=== PATIENT | male | born 1950 | race Caucasian/White ===

== ENCOUNTER 2018-07-10 10:16 | Inpatient (IN) | payer MEDICARE ==
[~2018-07-10] VITALS: Ht 172.7 cm; Wt 89.1 kg
[~2018-07-10 10:16] MED LIST: ALBU18HF INH; ASPI-515 PO; DILT120C11 PO; ENAL10TA PO; FOLI0.8T2 PO; GLUC1CAP48 PO; HYDR25TA6 PO
[2018-07-10] MEDS ORDERED: ALBUTEROL SULFATE 2.5 MG/3 ML ONE ×2 (10:22)
--- NOTE | 2018-07-10 10:29 | NUR ---
67 Y/O MALE BIB AMBULANCE WITH C/O SOB. PER REPORT PT WAS SOB X 24 HOURS. PT CAME FROM HOME. ROOM AIR SATURATION ON FIRE ARRIVAL WAS 74%, AFTER PT OWN NEB TX. PT WAS GIVEN TOTAL OF 2 DUONEB AND TWO ALBUTEROL TX [employer]ATE [employer]STER. PT WAS 95% ON CPAP. PIV, 22 RIGHT WRIST, STARTED BY EMS. 20 RIGHT HAND STARTED BY THIS RN. PT TOLERATED WITH NO COMPLICATIONS. 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 PT WAS ALSO GIVEN 0.4 SL NITRO D/T HTN [employer]ATE WEBMASTER. NO C/O F/C, CP, N/V/D. PT PLACED ON HI-VNI HIGH FLOW. PT TOLERATING WITH NO COMPLICATIONS.
[2018-07-10] MEDS ORDERED: SODIUM CHLORIDE FLUSH 10ML SYR IVF ONE (10:30)
[2018-07-10] MEDS ORDERED: ALBUTEROL SULFATE 2.5 MG/3 ML NPPB SCH ×2 (10:30→13:00)
--- NOTE | 2018-07-10 10:36 | NUR ---
PT STATES "I FEEL A LITTLE BETTER."
[2018-07-10 10:42] LABS: BASOPHILS # (AUTO) 0.07 x10^3/uL (0-0.1); BASOPHILS % (AUTO) 1 % (0-1); EOSINOPHILS # (AUTO) 0.04 x10^3/uL (0-0.4); EOSINOPHILS % (AUTO) 0 % (1-7); LYMPHOCYTES # (AUTO) 0.76 x10^3/uL (1-3.4); LYMPHOCYTES % (AUTO) 6 % (22-44); MD NO; MEAN CORPUSCULAR HGB CONC 33.5 g/dL (33.2-36.2); MEAN CORPUSCULAR VOLUME 92.4 fL (81-97); MEAN PLATELET VOLUME 7.8 fL (7.4-10.4); MONOCYTES # (AUTO) 0.57 x10^3/uL (0.2-0.8); MONOCYTES % (AUTO) 5 % (2-9); NEUTROPHILS % (AUTO) 88 % (42-75); PLATELET COUNT 214 x10^3/uL (130-400); RED BLOOD COUNT 5.35 x10^6/uL (4.38-5.82); RED CELL DISTRIBUTION WIDTH 13.7 % (9.4-14.8)
[2018-07-10] MEDS ORDERED: BREO ELLIPTA (10:46)
--- NOTE | 2018-07-10 10:46 | NUR ---
PT STATES "I TAKE TRILOGY, BUT I RAN OUT OF IT. SO I'VE BEEN USING THE SPIRIVA."
[2018-07-10] MEDS ORDERED: TRELEGY ELLIPTA (10:49)
[2018-07-10 10:51] LABS: ALANINE AMINOTRANSFERASE 28 U/L (12-78); ALBUMIN 3.5 g/dL (3.4-5.0); ANION GAP 8 mmol/L (5-15); CALCIUM 8.8 mg/dL (8.5-10.1); CHLORIDE 86 mmol/L (98-107); CREATININE 0.87 mg/dL (0.7-1.3)
[2018-07-10 10:56] LABS: ALKALINE PHOSPHATASE 159 U/L (45-117); BILIRUBIN,TOTAL 0.9 mg/dL (0.2-1.0); TOTAL PROTEIN 8.2 g/dL (6.4-8.2); TROPONIN I < 0.015 ng/mL (0.000-0.045)
--- NOTE | 2018-07-10 11:03 | NUR ---
PT A&OX4 AT THIS TIME.
--- NOTE | 2018-07-10 11:11 | NUR ---
PT GIVEN BLANKET. FAMILY BEDSIDE. NO ACUTE DISTRESS NOTED. PT ABLE TO SPEAK WITH FAMILY.
[2018-07-10] MEDS ORDERED: SODIUM CHLORIDE 0.9%, 500ML IVBOLUS ONE (11:30)
[2018-07-10] MEDS ORDERED: DEXTROSE 50%, 50ML SYRINGE IVPush ONE (11:30)
[2018-07-10] MEDS ORDERED: INSULIN REGULAR 100 UNITS/ML, 3ML VIAL IVPush ONE (11:30)
[2018-07-10] MEDS ORDERED: CEFTRIAXONE PMX 1GM/50ML 50 ML ONE (11:30)
[2018-07-10] MEDS ORDERED: CALCIUM CHLORIDE 10%, 10ML SYR IVPush ONE (11:30)
[2018-07-10] MEDS ORDERED: CEFTRIAXONE PMX 1GM/50ML 50 ML IVPB ONE (11:30)
[2018-07-10] MEDS ORDERED: CALCIUM CHLORIDE 10%, 10ML SYR ONE (11:31)
[2018-07-10] MEDS ORDERED: DEXTROSE 50%, 50ML SYRINGE ONE (11:31)
[2018-07-10] MEDS ORDERED: INSULIN SINGLE DOSE, ER SQ-INSULIN ONE (11:33)
[2018-07-10] MEDS ORDERED: MULT-297 PO (11:37)
--- NOTE | 2018-07-10 11:55 | NUR ---
ABX ADMINISTERED PER EMAR. BCX2 COMPLETED.
--- NOTE | 2018-07-10 11:56 | NUR ---
PT RESTING ON GURNEY. NO ACUTE DISTRESS NOTED. PT A&OX4. FAMILY BEDSIDE. NO NEEDS REQUESTED AT THIS TIME.
--- NOTE | 2018-07-10 12:04 | NUR ---
REPORT TO LEONORA RODRIGUEZ. ALL QUESTIONS ANSWERED.
[2018-07-10] MEDS ORDERED: ALBUTEROL/IPRATROPIUM 2.5MG/0.5MG, 3 ML ONE (12:33)
[2018-07-10] MEDS ORDERED: LORazepam 2 MG/ML, 1ML IV PRN ×4 (13:00)
[2018-07-10] MEDS ORDERED: LORazepam 1MG TABLET PO PRN ×2 (13:00)
[2018-07-10] MEDS ORDERED: ACETAMINOPHEN 325 MG TABLET PO PRN (13:00)
[2018-07-10] MEDS ORDERED: CEFTRIAXONE PMX 2GM/50ML 50 ML IV SCH (13:00)
[2018-07-10] MEDS ORDERED: LORazepam 0.5MG TABLET PO PRN (13:00)
[2018-07-10] MEDS ORDERED: SODIUM CHLORIDE 0.9% 1,000 ML IV SCH (13:00)
[2018-07-10] MEDS: ENOXAPARIN 40 MG/0.4 ML SQ SCH (15:00)
[2018-07-10] MEDS: ALBUTEROL/IPRATROPIUM 2.5MG/0.5MG, 3 ML NPPB SCH ×3 (16:55→22:47)
[2018-07-10] MEDS: CARVEDILOL 6.25 MG TABLET PO SCH (17:14)
[2018-07-10] MEDS ORDERED: CODE BLUE RESPONSE XX ONE (18:22)
[2018-07-10] MEDS ORDERED: MIDAZOLAM 1 MG/ML, 5ML ONE (18:30)
[2018-07-10] MEDS ORDERED: PROPOFOL 100 ML IV ONE (18:51)
[2018-07-10] MEDS ORDERED: PROPOFOL 100 ML IV PRN (19:40)
[2018-07-10] MEDS ORDERED: MIDAZOLAM HCL 25 MG in SODIUM CHLORIDE 0.9% 245 ML IV PRN (19:40)
[2018-07-10] MEDS ORDERED: LIDOCAINE-MPF 1%, 2ML ENDO PRN (20:00)
[2018-07-10] MEDS ORDERED: PHARMACY MAY ADJ FOR RENAL FX MC SCH (20:00)
[2018-07-10] MEDS ORDERED: SODIUM CHLORIDE 0.9% 1,000ML IVBOLUS ONE (21:00)
[2018-07-10] MEDS ORDERED: NOREPINEPHRINE 4 MG in SODIUM CHLORIDE 0.9% 246 ML IV PRN (21:00)
[2018-07-10] MEDS: DOXYCYCLINE 100 MG in DEXTROSE 5% 250 ML IV SCH (21:02)
[2018-07-10] MEDS: SODIUM CHLORIDE 0.9% 1,000 ML IV SCH (21:02)
[2018-07-10] MEDS: FAMOTIDINE 20 MG/2 ML IV SCH (21:04)
[2018-07-10 21:06] LABS: TROPONIN I 0.195 ng/mL (0.000-0.045)
[2018-07-10] MEDS: MIDAZOLAM HCL 50 MG in SODIUM CHLORIDE 0.9% 240 ML IV PRN (23:52)
[2018-07-11] MEDS: ALBUTEROL/IPRATROPIUM 2.5MG/0.5MG, 3 ML NPPB SCH ×6 (02:32→21:50)
[2018-07-11] MEDS: CARVEDILOL 6.25 MG TABLET PO SCH ×2 (05:01→18:03)
[2018-07-11 05:21] LABS: ALANINE AMINOTRANSFERASE 22 U/L (12-78); ALBUMIN 2.7 g/dL (3.4-5.0); ANION GAP 6 mmol/L (5-15); CALCIUM 7.9 mg/dL (8.5-10.1); CHLORIDE 99 mmol/L (98-107); CREATININE 0.98 mg/dL (0.7-1.3)
[2018-07-11 05:23] LABS: ALKALINE PHOSPHATASE 90 U/L (45-117); BILIRUBIN,TOTAL 0.4 mg/dL (0.2-1.0); TOTAL PROTEIN 5.9 g/dL (6.4-8.2)
[2018-07-11 05:24] LABS: TROPONIN I 0.366 ng/mL (0.000-0.045)
[2018-07-11 05:27] LABS: BASOPHILS # (AUTO) 0.01 x10^3/uL (0-0.1); BASOPHILS % (AUTO) 0 % (0-1); EOSINOPHILS % (AUTO) 0 % (1-7); LYMPHOCYTES # (AUTO) 0.59 x10^3/uL (1-3.4); LYMPHOCYTES % (AUTO) 7 % (22-44); MD NO; MEAN CORPUSCULAR HEMOGLOBIN 31.4 pg (27.5-34.5); MEAN CORPUSCULAR HGB CONC 33.9 g/dL (33.2-36.2); MEAN CORPUSCULAR VOLUME 92.5 fL (81-97); MEAN PLATELET VOLUME 7.9 fL (7.4-10.4); MONOCYTES # (AUTO) 0.43 x10^3/uL (0.2-0.8); MONOCYTES % (AUTO) 5 % (2-9); NEUTROPHILS # (AUTO) 7.28 x10^3/uL (1.8-6.8); NEUTROPHILS % (AUTO) 88 % (42-75); PLATELET COUNT 171 x10^3/uL (130-400); RED BLOOD COUNT 4.36 x10^6/uL (4.38-5.82); RED CELL DISTRIBUTION WIDTH 13.9 % (9.4-14.8)
[2018-07-11] MEDS: SODIUM CHLORIDE 0.9% 1,000 ML IV SCH ×2 (07:52→20:03)
[2018-07-11] MEDS: FOLIC ACID 1 MG TABLET PO SCH (07:53)
[2018-07-11] MEDS: DOXYCYCLINE 100 MG in DEXTROSE 5% 250 ML IV SCH ×2 (07:53→20:03)
[2018-07-11] MEDS: FAMOTIDINE 20 MG/2 ML IV SCH ×2 (07:53→20:03)
[2018-07-11] MEDS ORDERED: THIAMINE 100MG TABLET PO SCH (09:00)
[2018-07-11] MEDS ORDERED: TEMPLATE NON-FORMULARY MED. (Gluc 2KCL/Chondr/Coll Hy/Hy Ac** (Glucosamine & Chondroitin C PO SCH (09:00)
[2018-07-11] MEDS ORDERED: ENALAPRIL 10 MG TABLET PO SCH (09:00)
[2018-07-11] MEDS ORDERED: THIAMINE 100 MG in SODIUM CHLORIDE 0.9% 50 ML IV SCH (09:30)
[2018-07-11] MEDS: NICOTINE 21 MG/24 HR PATCH.TD24 TD SCH (10:27)
[2018-07-11] MEDS: MULTIVITAMINS/MINERALS TABLET PO SCH (10:27)
[2018-07-11 11:32] LABS: TROPONIN I 0.893 ng/mL (0.000-0.045)
[2018-07-11] MEDS: ENOXAPARIN 40 MG/0.4 ML SQ SCH (12:17)
--- NOTE | 2018-07-11 13:20 | NUR ---
TF GOAL: w/ propofol: PROMOTE @ 70ML/HR off propofol: PROMOTE @ 80ML/HR
[2018-07-11] MEDS: CEFTRIAXONE PMX 1GM/50ML 50 ML IV SCH (13:44)
[2018-07-11] MEDS: methylPREDNISolone SOD SUCC 125 MG/2 ML IVPush SCH ×2 (15:56→21:42)
[2018-07-11] MEDS: MIDAZOLAM HCL 50 MG in SODIUM CHLORIDE 0.9% 240 ML IV PRN (21:42)
[2018-07-11] MEDS: BUDESONIDE 0.5 MG/2 ML INHA INH SCH (21:50)
[2018-07-12] MEDS: ALBUTEROL/IPRATROPIUM 2.5MG/0.5MG, 3 ML NPPB SCH ×6 (02:20→22:00)
[2018-07-12] MEDS: MIDAZOLAM HCL 50 MG in SODIUM CHLORIDE 0.9% 240 ML IV PRN ×4 (03:00→23:48)
[2018-07-12] MEDS: methylPREDNISolone SOD SUCC 125 MG/2 ML IVPush SCH ×4 (03:00→20:36)
[2018-07-12 04:12] LABS: BASOPHILS % (AUTO) 0 % (0-1); EOSINOPHILS # (AUTO) 0.01 x10^3/uL (0-0.4); EOSINOPHILS % (AUTO) 0 % (1-7); LYMPHOCYTES # (AUTO) 0.41 x10^3/uL (1-3.4); LYMPHOCYTES % (AUTO) 6 % (22-44); MD NO; MEAN CORPUSCULAR HGB CONC 34.1 g/dL (33.2-36.2); MEAN CORPUSCULAR VOLUME 93.9 fL (81-97); MONOCYTES % (AUTO) 1 % (2-9); NEUTROPHILS # (AUTO) 6.32 x10^3/uL (1.8-6.8); NEUTROPHILS % (AUTO) 92 % (42-75); PLATELET COUNT 141 x10^3/uL (130-400); RED BLOOD COUNT 4.16 x10^6/uL (4.38-5.82); RED CELL DISTRIBUTION WIDTH 13.8 % (9.4-14.8)
[2018-07-12 04:14] LABS: ANION GAP 5 mmol/L (5-15); CALCIUM 7.6 mg/dL (8.5-10.1); CHLORIDE 102 mmol/L (98-107); CREATININE 0.84 mg/dL (0.7-1.3)
[2018-07-12] MEDS: CARVEDILOL 6.25 MG TABLET PO SCH (05:14)
[2018-07-12] MEDS: DOXYCYCLINE 100 MG in DEXTROSE 5% 250 ML IV SCH (07:37)
[2018-07-12] MEDS: BUDESONIDE 0.5 MG/2 ML INHA INH SCH ×2 (07:53→21:00)
[2018-07-12] MEDS: FAMOTIDINE 20 MG/2 ML IV SCH ×2 (10:15→20:36)
[2018-07-12] MEDS: NICOTINE 21 MG/24 HR PATCH.TD24 TD SCH (10:15)
[2018-07-12] MEDS: MULTIVITAMINS/MINERALS TABLET PO SCH (10:15)
[2018-07-12] MEDS: FOLIC ACID 1 MG TABLET PO SCH (10:16)
[2018-07-12] MEDS: ENALAPRIL 10 MG TABLET PO SCH (10:16)
[2018-07-12] MEDS: THIAMINE 100MG TABLET NG SCH (11:00)
[2018-07-12] MEDS ORDERED: methylPREDNISolone SOD SUCC 40 MG/ML IV STA (11:53)
[2018-07-12] MEDS: CEFTRIAXONE PMX 1GM/50ML 50 ML IV SCH (14:22)
[2018-07-12] MEDS: ENOXAPARIN 40 MG/0.4 ML SQ SCH (14:27)
[2018-07-12] MEDS ORDERED: MAGNESIUM SULFATE PMX 2GM/50ML 50 ML IV ONE (17:39)
[2018-07-12] MEDS: CARVEDILOL 6.25 MG TABLET NG SCH (18:41)
[2018-07-12] MEDS: ALBUTEROL SULFATE 2.5 MG/3 ML NPPB PRN (21:34)
[2018-07-13] MEDS: ALBUTEROL SULFATE 2.5 MG/3 ML NPPB PRN (01:32)
[2018-07-13] MEDS: ALBUTEROL/IPRATROPIUM 2.5MG/0.5MG, 3 ML NPPB SCH ×6 (02:00→21:55)
[2018-07-13] MEDS: methylPREDNISolone SOD SUCC 125 MG/2 ML IVPush SCH ×4 (03:00→21:18)
[2018-07-13 04:34] LABS: ANION GAP 5 mmol/L (5-15); CALCIUM 7.9 mg/dL (8.5-10.1); CHLORIDE 101 mmol/L (98-107); CREATININE 0.74 mg/dL (0.7-1.3); TRIGLYCERIDES 110 mg/dL (50-200)
[2018-07-13 04:35] LABS: BASOPHILS # (AUTO) 0.01 x10^3/uL (0-0.1); BASOPHILS % (AUTO) 0 % (0-1); EOSINOPHILS % (AUTO) 0 % (1-7); LYMPHOCYTES # (AUTO) 0.37 x10^3/uL (1-3.4); LYMPHOCYTES % (AUTO) 7 % (22-44); MD NO; MEAN CORPUSCULAR HEMOGLOBIN 31.5 pg (27.5-34.5); MEAN CORPUSCULAR HGB CONC 33.8 g/dL (33.2-36.2); MEAN CORPUSCULAR VOLUME 93.2 fL (81-97); MEAN PLATELET VOLUME 7.9 fL (7.4-10.4); MONOCYTES # (AUTO) 0.26 x10^3/uL (0.2-0.8); MONOCYTES % (AUTO) 5 % (2-9); NEUTROPHILS # (AUTO) 4.85 x10^3/uL (1.8-6.8); NEUTROPHILS % (AUTO) 88 % (42-75); PLATELET COUNT 143 x10^3/uL (130-400); RED BLOOD COUNT 4.36 x10^6/uL (4.38-5.82); RED CELL DISTRIBUTION WIDTH 14.4 % (9.4-14.8)
[2018-07-13] MEDS: CARVEDILOL 6.25 MG TABLET NG SCH (04:59)
[2018-07-13] MEDS: MIDAZOLAM HCL 50 MG in SODIUM CHLORIDE 0.9% 240 ML IV PRN ×3 (04:59→21:19)
[2018-07-13] MEDS ORDERED: hydrALAzine 20 MG/ML, 1ML ONE (06:22)
[2018-07-13] MEDS: hydrALAzine 20 MG/ML, 1ML IV PRN ×2 (06:24→22:52)
[2018-07-13] MEDS: BUDESONIDE 0.5 MG/2 ML INHA INH SCH ×2 (07:15→21:55)
[2018-07-13] MEDS ORDERED: ENALAPRIL 20MG TABLET ONE (07:45)
[2018-07-13] MEDS: FAMOTIDINE 20 MG/2 ML IV SCH ×2 (08:08→21:18)
[2018-07-13] MEDS: ENALAPRIL 10 MG TABLET PO SCH (08:09)
[2018-07-13] MEDS: MULTIVITAMINS/MINERALS TABLET PO SCH (08:09)
[2018-07-13] MEDS: NICOTINE 21 MG/24 HR PATCH.TD24 TD SCH (08:10)
[2018-07-13] MEDS: FOLIC ACID 1 MG TABLET NG SCH (08:10)
[2018-07-13] MEDS: FUROSEMIDE 20 MG/2 ML IV SCH ×2 (08:56→21:18)
[2018-07-13] MEDS: POTASSIUM CHLORIDE 10% 20 MEQ/15 ML UDC PO SCH ×2 (08:56→21:18)
[2018-07-13] MEDS: THIAMINE 100MG TABLET NG SCH (11:16)
[2018-07-13] MEDS: ENOXAPARIN 40 MG/0.4 ML SQ SCH (12:33)
[2018-07-13] MEDS: CEFTRIAXONE PMX 1GM/50ML 50 ML IV SCH (12:34)
[2018-07-14] MEDS: ALBUTEROL/IPRATROPIUM 2.5MG/0.5MG, 3 ML NPPB SCH ×6 (02:30→22:15)
[2018-07-14] MEDS: methylPREDNISolone SOD SUCC 125 MG/2 ML IVPush SCH ×4 (03:24→21:16)
[2018-07-14] MEDS: hydrALAzine 20 MG/ML, 1ML IV PRN (03:25)
[2018-07-14 04:45] LABS: BASOPHILS # (AUTO) 0.01 x10^3/uL (0-0.1); BASOPHILS % (AUTO) 0 % (0-1); EOSINOPHILS % (AUTO) 0 % (1-7); LYMPHOCYTES # (AUTO) 0.33 x10^3/uL (1-3.4); LYMPHOCYTES % (AUTO) 5 % (22-44); MD NO; MEAN CORPUSCULAR HEMOGLOBIN 31.1 pg (27.5-34.5); MEAN CORPUSCULAR HGB CONC 33.3 g/dL (33.2-36.2); MEAN CORPUSCULAR VOLUME 93.4 fL (81-97); MONOCYTES # (AUTO) 0.41 x10^3/uL (0.2-0.8); MONOCYTES % (AUTO) 6 % (2-9); NEUTROPHILS # (AUTO) 6.08 x10^3/uL (1.8-6.8); NEUTROPHILS % (AUTO) 89 % (42-75); PLATELET COUNT 165 x10^3/uL (130-400); RED CELL DISTRIBUTION WIDTH 14.1 % (9.4-14.8)
[2018-07-14] MEDS: BUDESONIDE 0.5 MG/2 ML INHA INH SCH ×2 (06:35→18:50)
[2018-07-14] MEDS: POTASSIUM CHLORIDE 10% 20 MEQ/15 ML UDC PO SCH ×2 (07:52→21:12)
[2018-07-14] MEDS: NICOTINE 21 MG/24 HR PATCH.TD24 TD SCH (07:53)
[2018-07-14] MEDS: FUROSEMIDE 20 MG/2 ML IV SCH ×2 (07:53→21:13)
[2018-07-14] MEDS: ENALAPRIL 10 MG TABLET PO SCH (07:53)
[2018-07-14] MEDS: MULTIVITAMINS/MINERALS TABLET PO SCH (07:53)
[2018-07-14] MEDS: FAMOTIDINE 20 MG TABLET PO SCH ×2 (07:53→21:11)
[2018-07-14] MEDS: FOLIC ACID 1 MG TABLET NG SCH (07:54)
[2018-07-14] MEDS: DEXMEDETOMIDINE 1,000 MCG in SODIUM CHLORIDE 0.9% 240 ML IV PRN (09:11)
[2018-07-14] MEDS: THIAMINE 100MG TABLET NG SCH (10:30)
[2018-07-14 10:44] LABS: ALANINE AMINOTRANSFERASE 30 U/L (12-78); ALBUMIN 2.9 g/dL (3.4-5.0); ANION GAP 6 mmol/L (5-15); CALCIUM 8.3 mg/dL (8.5-10.1); CHLORIDE 102 mmol/L (98-107); CREATININE 0.95 mg/dL (0.7-1.3)
[2018-07-14 10:47] LABS: ALKALINE PHOSPHATASE 106 U/L (45-117); BILIRUBIN,TOTAL 0.6 mg/dL (0.2-1.0); TOTAL PROTEIN 6.2 g/dL (6.4-8.2)
[2018-07-14] MEDS: CEFTRIAXONE PMX 1GM/50ML 50 ML IV SCH (13:07)
[2018-07-14] MEDS: ENOXAPARIN 40 MG/0.4 ML SQ SCH (13:07)
[2018-07-15] MEDS: hydrALAzine 20 MG/ML, 1ML IV PRN ×3 (01:07→19:59)
[2018-07-15] MEDS: DEXMEDETOMIDINE 1,000 MCG in SODIUM CHLORIDE 0.9% 240 ML IV PRN (01:30)
[2018-07-15] MEDS: ALBUTEROL/IPRATROPIUM 2.5MG/0.5MG, 3 ML NPPB SCH ×6 (02:45→20:20)
[2018-07-15] MEDS: methylPREDNISolone SOD SUCC 125 MG/2 ML IVPush SCH ×4 (03:33→19:29)
[2018-07-15 04:45] LABS: BASOPHILS # (AUTO) 0.01 x10^3/uL (0-0.1); BASOPHILS % (AUTO) 0 % (0-1); EOSINOPHILS % (AUTO) 0 % (1-7); LYMPHOCYTES % (AUTO) 8 % (22-44); MD NO; MEAN CORPUSCULAR HEMOGLOBIN 30.7 pg (27.5-34.5); MEAN CORPUSCULAR HGB CONC 33.1 g/dL (33.2-36.2); MEAN CORPUSCULAR VOLUME 92.7 fL (81-97); MONOCYTES # (AUTO) 0.28 x10^3/uL (0.2-0.8); MONOCYTES % (AUTO) 8 % (2-9); NEUTROPHILS # (AUTO) 3.02 x10^3/uL (1.8-6.8); NEUTROPHILS % (AUTO) 84 % (42-75); PLATELET COUNT 131 x10^3/uL (130-400); RED BLOOD COUNT 4.73 x10^6/uL (4.38-5.82); RED CELL DISTRIBUTION WIDTH 14.2 % (9.4-14.8)
[2018-07-15] MEDS ORDERED: LACTULOSE 20 GM/30 ML UDC NG PRN (07:00)
[2018-07-15] MEDS ORDERED: BISACODYL 10 MG SUPP PR PRN (07:00)
[2018-07-15 07:23] LABS: ANION GAP 7 mmol/L (5-15); CHLORIDE 102 mmol/L (98-107); CREATININE 0.92 mg/dL (0.7-1.3)
[2018-07-15] MEDS: BUDESONIDE 0.5 MG/2 ML INHA INH SCH ×2 (07:26→20:20)
[2018-07-15] MEDS: MULTIVITAMINS/MINERALS TABLET PO SCH (07:44)
[2018-07-15] MEDS: POTASSIUM CHLORIDE 10% 20 MEQ/15 ML UDC PO SCH ×2 (07:44→19:29)
[2018-07-15] MEDS: DOCUSATE 50 MG/5 ML, 10ML UDC PO SCH (07:44)
[2018-07-15] MEDS: ENALAPRIL 10 MG TABLET PO SCH (07:45)
[2018-07-15] MEDS: FAMOTIDINE 20 MG TABLET PO SCH ×2 (07:45→19:29)
[2018-07-15] MEDS: FUROSEMIDE 20 MG/2 ML IV SCH ×2 (07:45→19:29)
[2018-07-15] MEDS: FOLIC ACID 1 MG TABLET NG SCH (07:45)
[2018-07-15] MEDS: NICOTINE 21 MG/24 HR PATCH.TD24 TD SCH (07:46)
[2018-07-15] MEDS: THIAMINE 100MG TABLET NG SCH (11:27)
[2018-07-15] MEDS ORDERED: ALBUTEROL/IPRATROPIUM 2.5MG/0.5MG, 3 ML NPPB PRN (12:00)
[2018-07-15] MEDS: ENOXAPARIN 40 MG/0.4 ML SQ SCH (12:06)
[2018-07-15] MEDS: CEFTRIAXONE PMX 1GM/50ML 50 ML IV SCH (12:06)
[2018-07-15] MEDS: SENNOSIDES 8.8 MG/5 ML ORAL SOL NG SCH (19:29)
[2018-07-16] MEDS: methylPREDNISolone SOD SUCC 125 MG/2 ML IVPush SCH ×2 (03:26→07:53)
[2018-07-16 05:46] LABS: BASOPHILS # (AUTO) 0.02 x10^3/uL (0-0.1); BASOPHILS % (AUTO) 0 % (0-1); EOSINOPHILS % (AUTO) 0 % (1-7); LYMPHOCYTES # (AUTO) 0.65 x10^3/uL (1-3.4); LYMPHOCYTES % (AUTO) 8 % (22-44); MD NO; MEAN CORPUSCULAR HEMOGLOBIN 31.6 pg (27.5-34.5); MEAN CORPUSCULAR VOLUME 93.1 fL (81-97); MEAN PLATELET VOLUME 8.1 fL (7.4-10.4); MONOCYTES # (AUTO) 0.42 x10^3/uL (0.2-0.8); MONOCYTES % (AUTO) 6 % (2-9); NEUTROPHILS # (AUTO) 6.59 x10^3/uL (1.8-6.8); NEUTROPHILS % (AUTO) 86 % (42-75); PLATELET COUNT 125 x10^3/uL (130-400); RED BLOOD COUNT 4.72 x10^6/uL (4.38-5.82); RED CELL DISTRIBUTION WIDTH 14.3 % (9.4-14.8)
[2018-07-16 05:57] LABS: ANION GAP 4 mmol/L (5-15); CALCIUM 8.5 mg/dL (8.5-10.1); CHLORIDE 96 mmol/L (98-107); CREATININE 0.82 mg/dL (0.7-1.3)
[2018-07-16] MEDS: BUDESONIDE 0.5 MG/2 ML INHA INH SCH ×2 (07:25→18:45)
[2018-07-16] MEDS: ALBUTEROL/IPRATROPIUM 2.5MG/0.5MG, 3 ML NPPB SCH ×4 (07:25→18:45)
[2018-07-16] MEDS: DOCUSATE 50 MG/5 ML, 10ML UDC PO SCH (07:52)
[2018-07-16] MEDS: FOLIC ACID 1 MG TABLET NG SCH (07:52)
[2018-07-16] MEDS: FAMOTIDINE 20 MG TABLET PO SCH ×2 (07:52→21:24)
[2018-07-16] MEDS: MULTIVITAMINS/MINERALS TABLET PO SCH (07:52)
[2018-07-16] MEDS: THIAMINE 100MG TABLET NG SCH ×2 (07:53→11:22)
[2018-07-16] MEDS: ENALAPRIL 10 MG TABLET PO SCH (07:53)
[2018-07-16] MEDS: NICOTINE 21 MG/24 HR PATCH.TD24 TD SCH (07:54)
[2018-07-16] MEDS: hydrALAzine 20 MG/ML, 1ML IV PRN (08:47)
[2018-07-16 08:58] LABS: HIT RESULT POSITIVE (NEGATIVE)
[2018-07-16] MEDS: VERAPAMIL ER 120MG TABLET.ER PO SCH ×2 (11:22→21:24)
[2018-07-16] MEDS: FONDAPARINUX 2.5 MG/0.5 ML SQ SCH (12:17)
[2018-07-16] MEDS: CEFTRIAXONE PMX 1GM/50ML 50 ML IV SCH (12:17)
[2018-07-16 14:17] VITALS: BP 161/74
[2018-07-16] MEDS ORDERED: methylPREDNISolone SOD SUCC 125 MG/2 ML IVPush SCH (17:00)
[2018-07-16] MEDS: methylPREDNISolone SOD SUCC 40 MG/ML IVPush SCH (17:38)
[2018-07-16 19:29] VITALS: BP 157/76
[2018-07-16] MEDS: SENNOSIDES 8.8 MG/5 ML ORAL SOL NG SCH (21:00)
[2018-07-17] MEDS: methylPREDNISolone SOD SUCC 40 MG/ML IVPush SCH ×3 (01:27→17:43)
[2018-07-17 01:47] VITALS: BP 138/77
[2018-07-17] MEDS: ALBUTEROL/IPRATROPIUM 2.5MG/0.5MG, 3 ML NPPB SCH ×4 (06:25→19:10)
[2018-07-17] MEDS: BUDESONIDE 0.5 MG/2 ML INHA INH SCH ×2 (06:25→19:10)
[2018-07-17 07:06] VITALS: BP 174/70
[2018-07-17] MEDS: DOCUSATE 50 MG/5 ML, 10ML UDC PO SCH (09:00)
[2018-07-17] MEDS: FOLIC ACID 1 MG TABLET NG SCH (09:40)
[2018-07-17] MEDS: VERAPAMIL ER 120MG TABLET.ER PO SCH ×2 (09:41→19:52)
[2018-07-17] MEDS: THIAMINE 100MG TABLET NG SCH (09:41)
[2018-07-17] MEDS: FAMOTIDINE 20 MG TABLET PO SCH ×2 (09:42→19:52)
[2018-07-17] MEDS: MULTIVITAMINS/MINERALS TABLET PO SCH (09:42)
[2018-07-17] MEDS: ENALAPRIL 10 MG TABLET PO SCH (09:42)
[2018-07-17] MEDS: methylPREDNISolone SOD SUCC 125 MG/2 ML IVPush SCH ×2 (09:43→19:52)
[2018-07-17] MEDS: FONDAPARINUX 2.5 MG/0.5 ML SQ SCH (09:44)
[2018-07-17] MEDS: NICOTINE 21 MG/24 HR PATCH.TD24 TD SCH (09:44)
[2018-07-17 12:05] VITALS: BP 152/79
[2018-07-17 13:28] VITALS: BP 146/60
[2018-07-17] MEDS: CEFTRIAXONE PMX 1GM/50ML 50 ML IV SCH (13:45)
[2018-07-17 18:40] VITALS: BP 153/68
[2018-07-18 00:59] VITALS: BP 143/74
[2018-07-18] MEDS: methylPREDNISolone SOD SUCC 40 MG/ML IVPush SCH ×3 (01:15→16:49)
[2018-07-18 05:33] LABS: BASOPHILS % (AUTO) 0 % (0-1); EOSINOPHILS % (AUTO) 0 % (1-7); LYMPHOCYTES # (AUTO) 0.57 x10^3/uL (1-3.4); LYMPHOCYTES % (AUTO) 7 % (22-44); MD NO; MEAN CORPUSCULAR HEMOGLOBIN 31.9 pg (27.5-34.5); MEAN CORPUSCULAR HGB CONC 33.7 g/dL (33.2-36.2); MEAN CORPUSCULAR VOLUME 94.7 fL (81-97); MEAN PLATELET VOLUME 8.1 fL (7.4-10.4); MONOCYTES # (AUTO) 0.33 x10^3/uL (0.2-0.8); MONOCYTES % (AUTO) 4 % (2-9); NEUTROPHILS # (AUTO) 6.79 x10^3/uL (1.8-6.8); NEUTROPHILS % (AUTO) 88 % (42-75); PLATELET COUNT 119 x10^3/uL (130-400); RED BLOOD COUNT 4.71 x10^6/uL (4.38-5.82); RED CELL DISTRIBUTION WIDTH 14.5 % (9.4-14.8)
[2018-07-18 05:44] LABS: ANION GAP 6 mmol/L (5-15); CALCIUM 8.7 mg/dL (8.5-10.1); CHLORIDE 100 mmol/L (98-107)
[2018-07-18 05:46] LABS: CREATININE 0.84 mg/dL (0.7-1.3)
[2018-07-18] MEDS: ALBUTEROL/IPRATROPIUM 2.5MG/0.5MG, 3 ML NPPB SCH ×3 (07:29→14:08)
[2018-07-18] MEDS: BUDESONIDE 0.5 MG/2 ML INHA INH SCH (07:29)
[2018-07-18 08:07] VITALS: BP 167/77
[2018-07-18] MEDS: MULTIVITAMINS/MINERALS TABLET PO SCH (09:37)
[2018-07-18] MEDS: THIAMINE 100MG TABLET NG SCH (09:37)
[2018-07-18] MEDS: FOLIC ACID 1 MG TABLET NG SCH (09:37)
[2018-07-18] MEDS: FONDAPARINUX 2.5 MG/0.5 ML SQ SCH (09:37)
[2018-07-18] MEDS: NICOTINE 21 MG/24 HR PATCH.TD24 TD SCH (09:37)
[2018-07-18] MEDS: FAMOTIDINE 20 MG TABLET PO SCH (09:37)
[2018-07-18] MEDS: ENALAPRIL 10 MG TABLET PO SCH (09:38)
[2018-07-18] MEDS: DOCUSATE 50 MG/5 ML, 10ML UDC PO SCH (09:39)
[2018-07-18] MEDS: VERAPAMIL ER 120MG TABLET.ER PO SCH (09:52)
[2018-07-18] MEDS ORDERED: FOND2.5D3 SQ (11:49)
[2018-07-18] MEDS ORDERED: VERA120T8 PO (11:49)
[2018-07-18] MEDS ORDERED: FAMO20TA7 PO (11:49)
[2018-07-18] MEDS ORDERED: TRELEGY ELLIPTA INH (11:49)
[2018-07-18] MEDS ORDERED: PRED10TA PO (11:49)
[2018-07-18] MEDS ORDERED: IPRA3AMP30 NPPB (11:49)
[2018-07-18] MEDS ORDERED: AZIT500T5 PO (11:49)
[2018-07-18] MEDS ORDERED: MAGN400T26 PO (11:49)
[2018-07-18] MEDS ORDERED: POLY17PO5 PO (11:49)
[2018-07-18] MEDS ORDERED: THIA100T67 PO (11:49)
[2018-07-18] MEDS ORDERED: CEFD300C37 PO (11:49)
[2018-07-18] MEDS ORDERED: FOLI-17 PO (11:49)
[2018-07-18] MEDS: CEFTRIAXONE PMX 1GM/50ML 50 ML IV SCH (13:26)
[2018-07-18 15:11] VITALS: BP 149/78
== END 2018-07-18 17:34 | DRG 870 ==
LOC: ED 11:10 → EDIP 11:23 → 4WST 13:00 → ICU 18:42 → CCU 07-12 17:37 → 5SO 07-16 14:09
PROVIDERS: ADMIT Internal Medicine; ATTEND Internal Medicine
PROC: 5A1955Z Respiratory Ventilation, Greater than 96 Consecutive Hours (ICD-10-PCS; principal; 2018-07-10)
PROC: 0BH17EZ Insertion of Endotracheal Airway into Trachea, Via Natural or Artificial Opening (ICD-10-PCS; 2018-07-10)
PROC: 5A12012 Performance of Cardiac Output, Single, Manual (ICD-10-PCS; 2018-07-10)
PROC: 02HV33Z Insertion of Infusion Device into Superior Vena Cava, Percutaneous Approach (ICD-10-PCS; 2018-07-11)
DX: A40.9 Streptococcal sepsis, unspecified (principal); J13 Pneumonia due to Streptococcus pneumoniae; J96.21 Acute and chronic respiratory failure with hypoxia; R65.21 Severe sepsis with septic shock; I46.9 Cardiac arrest, cause unspecified; E87.1 Hypo-osmolality and hyponatremia; J98.11 Atelectasis; J91.8 Pleural effusion in other conditions classified elsewhere; Z99.11 Dependence on respirator [ventilator] status; D75.82 Heparin induced thrombocytopenia (HIT); E66.9 Obesity, unspecified; E87.5 Hyperkalemia; F10.20 Alcohol dependence, uncomplicated; F17.210 Nicotine dependence, cigarettes, uncomplicated; G47.00 Insomnia, unspecified; I10 Essential (primary) hypertension; I48.0 Paroxysmal atrial fibrillation; J43.9 Emphysema, unspecified; Z82.49 Family history of ischemic heart disease and other diseases of the circulatory system; Z88.5 Allergy status to narcotic agent; Z88.8 Allergy status to other drugs, medicaments and biological substances; Z68.29 Body mass index [BMI] 29.0-29.9, adult; Z99.81 Dependence on supplemental oxygen
CPT/HCPCS: 36415; 36600; 71045; 71250; 74018; 80048; 80053; 82803; 83605; 83735; 83880; 84478; 84484; 85025; 86022; 87040; 87070; 87081; 87181; 87205; 92950; 93005; 93306; 93970; 94002; 94003; 94640; 96361; 96374; 96375; 99291; G0378; J0696; J1650; J1815; J2250; J3411; J7060; J7613; J7620; J7626; J0360; J1652; J1940; J2920; J2930; J3475; J3490; J7030; J7040; J7050